=== PATIENT | female | born 1975 | race Caucasian/White ===

== ENCOUNTER 2016-07-23 08:25 | Emergency (ER) | payer OTHER, SELFPAY ==
[2016-07-23 08:29] VITALS: BP 123/79; PULSE 82; RESP 18; TEMP 98; O2SAT 100; BMI 31.2
--- NOTE | 2016-07-23 08:43 | C.PDOC ---
Time Seen by Provider: 07/23/16 08:39 Chief Complaint (Nursing): Abnormal Skin Integrity Past Medical History Vital Signs: Last Vital Signs Temp 98 F 07/23/16 08:29 Pulse 82 07/23/16 08:29 Resp 18 07/23/16 08:29 BP 123/79 07/23/16 08:29 Pulse Ox 100 07/23/16 08:29 - Medical History PMH: Arthritis - Social History Hx Tobacco Use: No Hx Alcohol Use: No Hx Substance Use: No - Immunization History Hx Tetanus Toxoid Vaccination: No Hx Influenza Vaccination: No Hx Pneumococcal Vaccination: No ED Course And Treatment O2 Sat by Pulse Oximetry: 100
--- NOTE | 2016-07-23 08:50 | C.PDOC ---
History Of Present Illness 40-year-old female, presents to the emergency department with complaints of allergic reaction to scalp and face x2 days that started after leaving hair dye on too long. Patient is currently complaining of burning and swelling to the area. Denies other associated symptoms. CO ALLERGIC RXN SCALP, FACE X 2 DAYS. ONSET AFTER LEAVING HAIR DYE ON TOO LONG. CO SWELLING, BURNING TO AREA. DENIES OTHER ASSOC SX EXAM NAD NONTOXIC HEENT NO ANGIOEDEMA, MMM, VOICE WNL SKIN +CONTACT DERMATITIS HAIRLINE, TOP OF FOREHEAD W LOCAL HIVES. NO WEEPING, DC. Time Seen by Provider: 07/23/16 08:39 Chief Complaint (Nursing): Abnormal Skin Integrity History Per: Patient History/Exam Limitations: no limitations Past Medical History Reviewed: Historical Data, Nursing Documentation, Vital Signs Vital Signs: Last Vital Signs Temp 98 F 07/23/16 08:29 Pulse 82 07/23/16 08:29 Resp 18 07/23/16 08:29 BP 123/79 07/23/16 08:29 Pulse Ox 100 07/23/16 16:40 - Medical History PMH: Arthritis Family History: States: Unknown Family Hx - Social History Hx Tobacco Use: No Hx Alcohol Use: No Hx Substance Use: No - Immunization History Hx Tetanus Toxoid Vaccination: No Hx Influenza Vaccination: No Hx Pneumococcal Vaccination: No Review Of Systems Except As Marked, All Systems Reviewed And Found Negative. Constitutional: Negative for: Fever, Chills Respiratory: Negative for: Shortness of Breath Gastrointestinal: Negative for: Vomiting Musculoskeletal: Negative for: Back Pain Skin: Positive for: Other (allergic reaction to face and scalp). Negative for: Rash Neurological: Negative for: Weakness, Numbness, Headache, Dizziness Physical Exam - Physical Exam Appears: Non-toxic, No Acute Distress Skin: Warm, Dry, Other ( +CONTACT DERMATITIS HAIRLINE, TOP OF FOREHEAD W LOCAL HIVES. NO WEEPING, DC. ) Head: Atraumatic, Normacephalic Eye(s): bilateral: Normal Inspection, PERRL Nose: Normal Oral Mucosa: Moist Lips: Other (no angioedema.) Neck: Normal ROM Cardiovascular: Rhythm Regular Respiratory: Normal Breath Sounds, No Accessory Muscle Use Extremity: Normal ROM Neurological/Psych: Oriented x3, Normal Speech ED Course And Treatment O2 Sat by Pulse Oximetry: 100 Disposition Counseled Patient/Family Regarding: Diagnosis, Need For Followup, Rx Given - Disposition Referrals: YOUR,PMD [Other] Disposition: HOME/ ROUTINE Disposition Time: 08:50 Condition: IMPROVED Prescriptions: DiphenhydrAMINE [Benadryl] 25 mg PO Q6 #12 cap Ibuprofen [Motrin] 600 mg PO Q6 #30 tab predniSONE [Prednisone] 60 mg PO DAILY #12 tab Instructions: Contact Dermatitis (ED), Chemical Skin Burn (ED) - Clinical Impression Clinical Impression: Allergic contact dermatitis - Scribe Statement The provider has reviewed the documentation as recorded by the Flo Christianson All medical record entries made by the Flo were at my direction and personally dictated by me. I have reviewed the chart and agree that the record accurately reflects my personal performance of the history, physical exam, medical decision making, and the department course for this patient. I have also personally directed, reviewed, and agree with the discharge instructions and disposition.
== END 2016-07-23 09:09 | disposition home or self-care (01) ==
LOC: C.ER 08:25
DX: L23.9 Allergic contact dermatitis, unspecified cause (principal)